=== PATIENT | female | born 1985 | race Two or more races ===

== ENCOUNTER 2024-05-07 03:08 | Inpatient (IN) | payer OTHER ==
[~2024-05-07] VITALS: Ht 162.6 cm; Wt 64.4 kg
[2024-05-07 01:45] VITALS: BP 113/73
[2024-05-07] MEDS ORDERED: MAGNESIUM SULFATE IN WATER 500 ML IV SCH (03:30)
[2024-05-07] MEDS ORDERED: MAGNESIUM SULFATE IN WATER 4 GM/100 ML PIGGYBACK IV ONE (03:30)
[2024-05-07] MEDS ORDERED: RINGERS SOLUTION,LACTATED 1,000 ML IV SCH (03:45)
[2024-05-07] MEDS ORDERED: PRENATAL CAPLE1 EAC1 PO (04:06)
[2024-05-07] MEDS ORDERED: LABETALOL HCL100 MG PO (04:06)
[2024-05-07] MEDS ORDERED: CHILDREN'S ASPI81 MG PO (04:06)
[2024-05-07] MEDS ORDERED: FOLIC ACID20 MG PO (04:07)
[2024-05-07 05:07] LABS: HEMATOCRIT 24.5 % (36.0-45.00); MEAN CELL VOLUME 85.3 fL (80.00-100.00); PLATELET COUNT 242 K/uL (150-450); RED BLOOD COUNT 2.87 M/uL (4.00-6.00); RED CELL DISTRIBUTION WIDTH 13.9 % (11.5-14.5)
[2024-05-07 05:13] LABS: HEMOGLOBIN 8.6 g/dL (12.0-15.00); MEAN CORPUSCULAR HEMOGLOBIN 29.9 pg (27.00-32.0)
[2024-05-07 05:18] LABS: INR < 0.93; PARTIAL THROMBOPLASTIN TIME 25.4 SECONDS (22.0-34.0); PROTHROMBIN TIME 10.1 SECONDS (9.0-11.5)
[2024-05-07 05:22] LABS: ALBUMIN 2.5 gm/dL (3.4-5.0); BILIRUBIN TOTAL 0.41 mg/dL (0.3-1.2); CREATININE SERUM 0.48 mg/dL (0.55-1.02); GFR 143.24; GLOBULINA 3.4 G/DL (2.4-3.5); POTASSIUM 3.86 mEq/L (3.5-5.1); TOTAL PROTEIN 5.9 gm/dL (6.4-8.2)
[2024-05-07 07:16] VITALS: BP 123/77
[2024-05-07] MEDS ORDERED: PNV,CALCIUM 72/IRON/FOLIC ACID 1 TAB TABLET PO SCH (09:06)
[2024-05-07] MEDS ORDERED: SOD FERRIC GLUC COMPLX/SUCROSE 62.5 MG/5 ML AMPUL IV SCH ×2 (09:07→18:00)
[2024-05-07] MEDS ORDERED: FERROUS SULFATE 325 MG TABLET.EC PO SCH (09:21)
[2024-05-07 11:37] VITALS: BP 129/80
[2024-05-07 13:54] VITALS: BP 123/78
[2024-05-07 15:45] VITALS: BP 108/78
[2024-05-08 00:22] VITALS: BP 122/68
[2024-05-08 08:00] VITALS: BP 135/80
[2024-05-08] MEDS ORDERED: SOD FERRIC GLUC COMPLX/SUCROSE 62.5 MG/5 ML AMPUL IV SCH (09:00)
[2024-05-08 14:49] VITALS: BP 110/70
[2024-05-08 23:16] VITALS: BP 119/80
[2024-05-09 06:59] LABS: MEAN CELL VOLUME 86.2 fL (80.00-100.00); MEAN CORPUSCULAR HGB CONC 34.3 g/dl (32.0-36.0); PLATELET COUNT 237 K/uL (150-450); RED BLOOD COUNT 3.02 M/uL (4.00-6.00); RED CELL DISTRIBUTION WIDTH 14.4 % (11.5-14.5)
[2024-05-09 07:13] LABS: HEMOGLOBIN 8.9 g/dL (12.0-15.00); MEAN CORPUSCULAR HEMOGLOBIN 29.4 pg (27.00-32.0)
[2024-05-09 07:44] VITALS: BP 111/80
[2024-05-09 16:09] VITALS: BP 130/70
[2024-05-10] VITALS: BP 134/85
[2024-05-10 06:50] LABS: HEMATOCRIT 26.5 % (36.0-45.00); MEAN CELL VOLUME 87.3 fL (80.00-100.00); MEAN CORPUSCULAR HEMOGLOBIN 29.6 pg (27.00-32.0); MEAN CORPUSCULAR HGB CONC 33.8 g/dl (32.0-36.0); PLATELET COUNT 239 K/uL (150-450); RED BLOOD COUNT 3.03 M/uL (4.00-6.00); RED CELL DISTRIBUTION WIDTH 14.3 % (11.5-14.5)
[2024-05-10 07:42] LABS: FERRITIN 173.9 NG/ML (8-252)
[2024-05-10 08:05] VITALS: BP 124/87
== END 2024-05-10 13:01 | disposition home or self-care (01) | DRG 832 ==
LOC: LDR 03:08 → OB/GYN 03:08
PROVIDERS: Internal Medicine Hematology & Oncology; ADMIT Obstetrics & Gynecology Maternal & Fetal Medicine; ATTEND Obstetrics & Gynecology Maternal & Fetal Medicine
PROC: 4A1HXCZ Monitoring of Products of Conception, Cardiac Rate, External Approach (ICD-10-PCS; principal; 2024-05-07)
DX: O99.013 Anemia complicating pregnancy, third trimester (principal); O47.1 False labor at or after 37 completed weeks of gestation; D64.9 Anemia, unspecified; Z3A.36 36 weeks gestation of pregnancy; Z20.822 Contact with and (suspected) exposure to COVID-19